=== PATIENT | female | born 1960 | race Caucasian/White ===

== ENCOUNTER 2017-05-25 15:45 | Emergency (ER) | payer OTHER ==
[2017-05-25] MEDS: HYDROmorphONE 1 MG/ML SYG IV (22:23)
[2017-05-25] MEDS: SOD CHLORIDE 0.9% 1,000 ML IV (22:23)
[2017-05-25] MEDS: ONDANSETRON 4 MG INJ IV (22:23)
[2017-05-25 23:12] LABS: ADD MAN DIFF? NO
[2017-05-25 23:14] LABS: WHITE BLOOD COUNT 10.7 10^3/ul (4.8-10.8)
[2017-05-25 23:14] LABS: BASOPHILS % 0.4 % (0.0-2.0); EOSINOPHILS # 0.3 10^3/ul (0.0-0.5); EOSINOPHILS % 2.9 % (0.0-7.0); HEMATOCRIT 35.9 % (37.0-47.0); HEMOGLOBIN 11.8 g/dl (12.0-16.0); LYMPHOCYTES # 2.4 10^3/ul (0.8-2.9); LYMPHOCYTES % 22.7 % (15.0-51.0); MEAN CORPUSCULAR HEMOGLOBIN 27.4 pg (29.0-33.0); MEAN CORPUSCULAR HGB CONC 32.9 g/dl (32.0-37.0); MEAN CORPUSCULAR VOLUME 83.3 fl (82.0-101.0); MEAN PLATELET VOLUME 9.3 fl (7.4-10.4); MONOCYTE # 0.5 10^3/ul (0.3-0.9); MONOCYTES % 4.3 % (0.0-11.0); NEUTROPHIL # 7.4 10^3/ul (1.6-7.5); NEUTROPHILS % 69.2 % (39.0-77.0); PLATELET COUNT 316 10^3/UL (140-415); RED BLOOD COUNT 4.31 10^6/ul (4.20-5.40); RED CELL DISTRIBUTION WIDTH 13.4 % (11.5-14.5)
[2017-05-25 23:44] LABS: ALANINE AMINOTRANSFERASE 24 IU/L (13-69); ALBUMIN 4.3 g/dl (3.3-4.9); ALKALINE PHOSPHATASE 117 IU/L (42-121); ANION GAP 21 (8-16); ASPARTATE AMINO TRANSFERASE 16 IU/L (15-46); BILIRUBIN,INDIRECT 0.3 mg/dl (0-1.1); BILIRUBIN,TOTAL 0.3 mg/dl (0.2-1.3); BLOOD UREA NITROGEN 11 mg/dl (7-20); CALCIUM 9.7 mg/dl (8.4-10.2); CARBON DIOXIDE 25 mmol/L (21-31); CHLORIDE 105 mmol/L (97-110); GLUCOSE 94 mg/dl (70-220); LIPASE 74 U/L (23-300); POTASSIUM 3.9 mmol/L (3.5-5.1); SODIUM 147 mmol/L (135-144); TOTAL PROTEIN 8.2 g/dl (6.1-8.1)
[2017-05-25 23:56] LABS: TROPONIN-I < 0.012 ng/ml (0.00-0.12)
[2017-05-26 01:48] LABS: URINE PH (Dip) POC 5.5 (5.0-8.5)
[2017-05-26 01:48] LABS: URINE BLOOD (Dip) POC Negative (NEGATIVE); URINE GLUCOSE (Dip) POC Negative (NEGATIVE); URINE KETONES (Dip) POC Negative (NEGATIVE); URINE LEUKOCYTE EST (Dip) POC Trace (NEGATIVE); URINE NITRITE (Dip) POC Negative (NEGATIVE); URINE TOTAL PROTEIN POC Negative (NEGATIVE)
[2017-05-26 03:44] LABS: ADD UMIC NO; UR ASCORBIC ACID NEGATIVE (NEGATIVE); UR BILIRUBIN (Dip) NEGATIVE (NEGATIVE); UR BLOOD (Dip) NEGATIVE (NEGATIVE); UR CLARITY CLEAR (CLEAR); UR COLOR YELLOW (YELLOW); UR GLUCOSE (Dip) NEGATIVE (NEGATIVE); UR KETONES (Dip) NEGATIVE (NEGATIVE); UR LEUKOCYTE ESTERASE (Dip) NEGATIVE Leu/ul (NEGATIVE); UR NITRITE (Dip) NEGATIVE (NEGATIVE); UR SPECIFIC GRAVITY (Dip) 1.008 (1.003-1.030); UR TOTAL PROTEIN (Dip) NEGATIVE (NEGATIVE); UR UROBILINOGEN (Dip) NEGATIVE (NEGATIVE)
== END 2017-05-26 02:00 | disposition home or self-care (01) ==
LOC: E/R 05-26 02:00
DX: G44.209 Tension-type headache, unspecified, not intractable (principal); R07.89 Other chest pain; G89.28 Other chronic postprocedural pain; C50.912 Malignant neoplasm of unspecified site of left female breast; I10 Essential (primary) hypertension
CPT/HCPCS: 36415; 71010; 80053; 81003; 83690; 84484; 85025; 87086; 93005; 96361; 96374; 96375; 99285-25

== ENCOUNTER 2017-08-06 13:55 | Emergency (ER) | payer OTHER ==
[2017-08-06] MEDS: KETOROLAC 30 MG INJ IM (17:21)
== END 2017-08-06 17:40 | disposition home or self-care (01) ==
LOC: FTE 13:55
DX: G44.229 Chronic tension-type headache, not intractable (principal); Z85.3 Personal history of malignant neoplasm of breast
CPT/HCPCS: 96372; 99284-25

== ENCOUNTER 2018-08-10 06:17 | Day surgery (SDC) | payer OTHER ==
[2018-08-10] MEDS ORDERED: PROPOFOL 40 ML (08:54)
== END 2018-08-10 11:52 | disposition home or self-care (01) ==
LOC: GIL 06:17
DX: Z12.11 Encounter for screening for malignant neoplasm of colon (principal); K64.8 Other hemorrhoids; J45.909 Unspecified asthma, uncomplicated
CPT/HCPCS: 45378

== ENCOUNTER 2018-09-29 23:48 | Inpatient (IN) | payer OTHER ==
[2018-09-30] MEDS ORDERED: ACET/BUTAL/CAFF TAB PO (02:00)
[2018-09-30] MEDS ORDERED: ACETAMINOPHEN 325 MG TAB PO (02:00)
[2018-09-30] MEDS ORDERED: ONDANSETRON 4 MG INJ IV (02:00)
[2018-09-30] MEDS ORDERED: NACL 0.9% 3 ML SYG IV (02:00)
[2018-09-30] MEDS ORDERED: NITROGLYCERIN (SL) 0.4 MG TAB SL (02:00)
[2018-09-30] MEDS: HYDROCODONE/APAP (5/325) TAB PO ×3 (05:11→16:43)
[2018-09-30 06:08] LABS: ADD MAN DIFF? NO
[2018-09-30 06:22] LABS: PROTIME 13.3 Sec (11.9-14.9)
[2018-09-30 06:23] LABS: WHITE BLOOD COUNT 8.9 10^3/ul (4.8-10.8)
[2018-09-30 06:23] LABS: BASOPHILS % 0.3 % (0.0-2.0); EOSINOPHILS # 0.4 10^3/ul (0.0-0.5); EOSINOPHILS % 4.3 % (0.0-7.0); HEMATOCRIT 34.4 % (37.0-47.0); HEMOGLOBIN 10.8 g/dl (12.0-16.0); LYMPHOCYTES # 3.1 10^3/ul (0.8-2.9); LYMPHOCYTES % 35.1 % (15.0-51.0); MEAN CORPUSCULAR HEMOGLOBIN 26.9 pg (29.0-33.0); MEAN CORPUSCULAR HGB CONC 31.4 g/dl (32.0-37.0); MEAN CORPUSCULAR VOLUME 85.6 fl (82.0-101.0); MEAN PLATELET VOLUME 9.9 fl (7.4-10.4); MONOCYTE # 0.5 10^3/ul (0.3-0.9); MONOCYTES % 5.2 % (0.0-11.0); NEUTROPHIL # 4.8 10^3/ul (1.6-7.5); NEUTROPHILS % 54.6 % (39.0-77.0); PARTIAL THROMBOPLASTIN TIME 32.2 Sec (23.0-35.0); PLATELET COUNT 301 10^3/UL (140-415); RED BLOOD COUNT 4.02 10^6/ul (4.20-5.40); RED CELL DISTRIBUTION WIDTH 13.9 % (11.5-14.5)
[2018-09-30 06:48] LABS: ALANINE AMINOTRANSFERASE 15 IU/L (13-69); ALBUMIN 3.8 g/dl (3.3-4.9); ALBUMIN/GLOBULIN RATIO 1.02; ALKALINE PHOSPHATASE 111 IU/L (42-121); ANION GAP 10 (5-13); ASPARTATE AMINO TRANSFERASE 16 IU/L (15-46); BILIRUBIN,INDIRECT 0.1 mg/dl (0-1.1); BILIRUBIN,TOTAL 0.1 mg/dl (0.2-1.3); BLOOD UREA NITROGEN 15 mg/dl (7-20); CALCIUM 9.1 mg/dl (8.4-10.2); CARBON DIOXIDE 25 mmol/L (21-31); CHLORIDE 107 mmol/L (97-110); CHOL/HDL RATIO 6.3 RATIO; CHOLESTEROL 134 mg/dl (100-200); CREATINE KINASE 27 IU/L (23-200); CREATININE 0.77 mg/dl (0.44-1.00); Estimated GFR > 60 mL/min (>60); GLUCOSE 96 mg/dl (70-220); HDL CHOLESTEROL 21 mg/dl (37-92); LDL CHOLESTEROL,CALCULATED 85 mg/dl; MAGNESIUM 1.9 mg/dl (1.7-2.5); POTASSIUM 3.8 mmol/L (3.5-5.1); SODIUM 142 mmol/L (135-144); TOTAL PROTEIN 7.5 g/dl (6.1-8.1); TRIGLYCERIDES 139 mg/dl (0-149)
[2018-09-30 06:50] LABS: CK INDEX 0.8; CK-MB < 0.22 ng/ml (0.0-2.4); TROPONIN-I < 0.012 ng/ml (0.000-0.120)
[2018-09-30 07:31] LABS: D-DIMER 2128.58 ng/ml (<460)
[2018-09-30 07:51] LABS: HEMOGLOBIN A1C 5.7 % (0-5.9)
[2018-09-30] MEDS: GABAPENTIN 100 MG CAP PO ×3 (08:05→20:02)
[2018-09-30] MEDS: ASPIRIN 81 MG TAB PO (08:05)
[2018-09-30] MEDS: ENOXAPARIN 40 MG/0.4 ML SYG SC (08:10)
[2018-09-30] MEDS: LORATADINE 10 MG TAB PO (08:12)
[2018-09-30] MEDS: ALPRAZOLAM 0.5 MG TAB PO ×2 (10:02→18:06)
[2018-09-30 11:18] LABS: IRON 32 ug/dl (35-150)
[2018-09-30] MEDS: TOPIRAMATE 25 MG TAB PO ×2 (11:25→20:02)
[2018-09-30 11:27] LABS: % IRON SATURATION 11 % SAT (22-52); TOTAL IRON BINDING CAPACITY 288 ug/dl (241-421)
[2018-09-30 11:54] LABS: FERRITIN 38.6 ng/ml (11.1-264.0)
[2018-09-30 12:02] LABS: CREATINE KINASE 33 IU/L (23-200)
[2018-09-30 12:07] LABS: HEPATITIS C VIRAL ANTIBODY NEGATIVE (NEGATIVE)
[2018-09-30 12:15] LABS: CK INDEX 0.7; CK-MB < 0.22 ng/ml (0.0-2.4); TROPONIN-I < 0.012 ng/ml (0.000-0.120)
[2018-09-30] MEDS: MIRTAZAPINE 15 MG TAB PO (20:02)
[2018-10-01 06:26] LABS: ADD MAN DIFF? NO
[2018-10-01 06:28] LABS: BASOPHILS % 0.4 % (0.0-2.0); EOSINOPHILS # 0.3 10^3/ul (0.0-0.5); EOSINOPHILS % 3.4 % (0.0-7.0); HEMATOCRIT 37.5 % (37.0-47.0); HEMOGLOBIN 11.8 g/dl (12.0-16.0); LYMPHOCYTES # 2.4 10^3/ul (0.8-2.9); LYMPHOCYTES % 26.7 % (15.0-51.0); MEAN CORPUSCULAR HEMOGLOBIN 26.9 pg (29.0-33.0); MEAN CORPUSCULAR HGB CONC 31.5 g/dl (32.0-37.0); MEAN CORPUSCULAR VOLUME 85.4 fl (82.0-101.0); MEAN PLATELET VOLUME 9.7 fl (7.4-10.4); MONOCYTE # 0.5 10^3/ul (0.3-0.9); MONOCYTES % 4.9 % (0.0-11.0); NEUTROPHIL # 5.9 10^3/ul (1.6-7.5); NEUTROPHILS % 64.2 % (39.0-77.0); PLATELET COUNT 310 10^3/UL (140-415); RED BLOOD COUNT 4.39 10^6/ul (4.20-5.40); RED CELL DISTRIBUTION WIDTH 13.7 % (11.5-14.5)
[2018-10-01 06:28] LABS: WHITE BLOOD COUNT 9.2 10^3/ul (4.8-10.8)
[2018-10-01 07:03] LABS: ANION GAP 11 (5-13); BLOOD UREA NITROGEN 18 mg/dl (7-20); CALCIUM 9.8 mg/dl (8.4-10.2); CARBON DIOXIDE 24 mmol/L (21-31); CHLORIDE 107 mmol/L (97-110); CREATININE 0.69 mg/dl (0.44-1.00); Estimated GFR > 60 mL/min (>60); GLUCOSE 94 mg/dl (70-220); MAGNESIUM 2.1 mg/dl (1.7-2.5); PHOSPHORUS 4.9 mg/dl (2.5-4.9); POTASSIUM 3.9 mmol/L (3.5-5.1); SODIUM 142 mmol/L (135-144)
[2018-10-01] MEDS: TOPIRAMATE 25 MG TAB PO (08:26)
[2018-10-01] MEDS: ASPIRIN 81 MG TAB PO (08:26)
[2018-10-01] MEDS: GABAPENTIN 100 MG CAP PO ×2 (08:27→12:33)
[2018-10-01] MEDS: LORATADINE 10 MG TAB PO (08:34)
[2018-10-01] MEDS: ENOXAPARIN 40 MG/0.4 ML SYG SC (08:34)
[2018-10-01] MEDS: ALPRAZOLAM 0.5 MG TAB PO (11:58)
[2018-10-01] MEDS: MAGNESIUM CITRATE 300 ML BTL PO (13:22)
[2018-10-01] MEDS ORDERED: DOCUSATE SODIUM 100 MG CAP PO (21:00)
== END 2018-10-01 18:15 | disposition home or self-care (01) | DRG 313 ==
LOC: 6WM 23:48
DX: R07.9 Chest pain, unspecified (principal); F41.9 Anxiety disorder, unspecified; F32.9 Major depressive disorder, single episode, unspecified; D64.9 Anemia, unspecified; K42.9 Umbilical hernia without obstruction or gangrene; D25.1 Intramural leiomyoma of uterus; R51 Headache; K57.30 Diverticulosis of large intestine without perforation or abscess without bleeding; K59.00 Constipation, unspecified; Z79.82 Long term (current) use of aspirin; Z90.12 Acquired absence of left breast and nipple; Z85.3 Personal history of malignant neoplasm of breast
CPT/HCPCS: 80048; 80053; 80061; 82550; 82553; 82728; 82962; 83036; 83540; 83735; 84100; 84443; 84484; 85025; 85378; 85610; 85730; 86803; 93005; 93306